=== PATIENT | female | born 1965 | race American Indian/Alaskan Native ===

== ENCOUNTER 2017-04-23 09:36 | Emergency (ER) | payer SELFPAY ==
--- NOTE | 2017-04-23 13:10 | Emergency Department Report ---
ED Back Pain/Injury HPI - General Chief Complaint: Back Pain/Injury Stated Complaint: BACK PAIN Time Seen by Provider: 04/23/17 12:44 Source: patient Limitations: No Limitations - History of Present Illness Initial Comments: 51-year-old female past medical history hypertension, chronic back pain presents with complaint of approximately 1.5 months of persistent lower back pain. Patient also states that for nearly one month she has had anterior frontal sinus and nasal congestion. Patient does state that she has had some rhinorrhea denies any cough denies any fevers or chills denies body aches. Denies abdominal pain chest pain or shortness of breath at rest. Patient denies any lower extremity paresthesias loss of bladder or bowel continence. Patient also states that she has had some increased urinary frequency over the last 3-4 days. Denies dysuria. Patient states she has been using some over-the -counter medicines with minimal relief of symptoms. Patient states she has a primary care doctor appointment next month. Awake alert and oriented 3 not in acute distress. Denies any falls denies any direct trauma to back. MD Complaint: back pain Onset/Timin -: month(s) Place: home Severity: mild Severity scale (0 -10): 5 Quality: aching Consistency: constant Improves With: none Worsens With: none Context: while lifting, turning/twisting, bending - Related Data Previous Rx's Medication Instructions Recorded Last Taken Type Ciprofloxacin HCl [Ciprofloxacin 500 mg PO Q12H #14 tab 04/11/15 Unknown Rx TAB] Ferrous Sulfate [Feosol 325 MG tab] 325 mg PO QDAY #30 tablet 04/11/15 Unknown Rx oxyCODONE /ACETAMINOPHEN [Percocet 1 tab PO Q6HR PRN #10 tablet 04/11/15 Unknown Rx 5/325] Clindamycin [Clindamycin CAP] 300 mg PO Q6H #28 capsule 04/23/17 Unknown Rx Fluticasone [Flonase] 1 spray NS QDAY PRN #1 bottle 04/23/17 Unknown Rx Loratadine [Claritin] 10 mg PO DAILY PRN #14 tablet 04/23/17 Unknown Rx Naproxen 500 mg PO BID PRN #20 tablet 04/23/17 Unknown Rx Nitrofurantoin Monohyd/M-Cryst 100 mg PO BID #14 capsule 04/23/17 Unknown Rx [Macrobid 100 mg Capsule] Allergies Allergy/AdvReac Type Severity Reaction Status Date / Time aspirin Allergy Itching Verified 04/23/17 10:31 codeine Allergy Itching Verified 04/23/17 10:31 Penicillins AdvReac Itching Verified 04/23/17 10:31 ED Review of Systems ROS: Stated complaint: BACK PAIN Other details as noted in HPI Constitutional: denies: chills, fever Eyes: denies: eye pain, eye discharge, vision change ENT: denies: ear pain, throat pain Respiratory: denies: cough, shortness of breath, wheezing Cardiovascular: denies: chest pain, palpitations Endocrine: no symptoms reported Gastrointestinal: denies: abdominal pain, nausea, diarrhea Genitourinary: denies: urgency, dysuria, discharge Musculoskeletal: back pain. denies: joint swelling, arthralgia Skin: denies: rash, lesions Neurological: denies: headache, weakness, paresthesias Psychiatric: denies: anxiety, depression Hematological/Lymphatic: denies: easy bleeding, easy bruising ED Past Medical Hx - Past Medical History Previous Medical History?: Yes Hx GERD: Yes Additional medical history: ectopic , fibroids - Surgical History Past Surgical History?: Yes Additional Surgical History: ectopic - Social History Smoking Status: Never Smoker Substance Use Type: Alcohol - Medications Home Medications: Home Medications Medication Instructions Recorded Confirmed Last Taken Type Ciprofloxacin HCl [Ciprofloxacin 500 mg PO Q12H #14 tab 04/11/15 Unknown Rx TAB] Ferrous Sulfate [Feosol 325 MG tab] 325 mg PO QDAY #30 tablet 04/11/15 Unknown Rx oxyCODONE /ACETAMINOPHEN [Percocet 1 tab PO Q6HR PRN #10 tablet 04/11/15 Unknown Rx 5/325] Clindamycin [Clindamycin CAP] 300 mg PO Q6H #28 capsule 04/23/17 Unknown Rx Fluticasone [Flonase] 1 spray NS QDAY PRN #1 bottle 04/23/17 Unknown Rx Loratadine [Claritin] 10 mg PO DAILY PRN #14 tablet 04/23/17 Unknown Rx Naproxen 500 mg PO BID PRN #20 tablet 04/23/17 Unknown Rx Nitrofurantoin Monohyd/M-Cryst 100 mg PO BID #14 capsule 04/23/17 Unknown Rx [Macrobid 100 mg Capsule] ED Physical Exam - General Limitations: No Limitations General appearance: alert, in no apparent distress - Head Head exam: Present: atraumatic, normocephalic - Eye Eye exam: Present: normal appearance, PERRL, EOMI - ENT ENT exam: Present: mucous membranes moist - Neck Neck exam: Present: normal inspection - Respiratory Respiratory exam: Present: normal lung sounds bilaterally. Absent: respiratory distress - Cardiovascular Cardiovascular Exam: Present: regular rate, normal rhythm. Absent: systolic murmur, diastolic murmur, rubs, gallop - GI/Abdominal GI/Abdominal exam: Present: soft, normal bowel sounds - Extremities Exam Extremities exam: Present: normal inspection - Back Exam Back exam: Present: normal inspection, full ROM (patient has no clinical CVA tenderness on percussion bilaterally) - Neurological Exam Neurological exam: Present: alert, oriented X3, CN II-XII intact, normal gait - Psychiatric Psychiatric exam: Present: normal affect, normal mood - Skin Skin exam: Present: warm, dry, intact, normal color. Absent: rash ED Course Vital Signs 04/23/17 10:25 Temperature 98.4 F Pulse Rate 70 Respiratory 18 Rate Blood Pressure 182/68 O2 Sat by Pulse 99 Oximetry ED Medical Decision Making - Medical Decision Making A/P: Back pain, sinusitis, asymptomatic hypertension 1-empiric treatment with clindamycin and Macrobid to cover for sinusitis and UTI. Patient has had symptoms for more than one month. Flonase nasal spray, Claritin, naproxen when necessary. Urine culture sent 2-patient stated that she had to leave to rock picker her grandchild. I covered patient empirically with medicines based on her symptoms 3-range of motion back fully intact 4-follow-up with primary care. Vital signs stable for discharge. Patient states she is able to tolerate NSAIDs except for aspirin Critical care attestation.: If time is entered above; I have spent that time in minutes in the direct care of this critically ill patient, excluding procedure time. ED Disposition Clinical Impression: Asymptomatic hypertension Urinary tract infection Qualifiers: Urinary tract infection type: acute cystitis Hematuria presence: without hematuria Qualified Code(s): N30.00 - Acute cystitis without hematuria Sinusitis Qualifiers: Sinusitis location: frontal Chronicity: subacute Qualified Code(s): J01.10 - Acute frontal sinusitis, unspecified Chronic back pain Qualifiers: Back pain location: low back pain Back pain laterality: midline Sciatica presence: without sciatica Qualified Code(s): M54.5 - Low back pain; G89.29 - Other chronic pain; G89.29 - Other chronic pain Disposition: TO HOME OR SELFCARE Is pt being admited?: No Does the pt Need Aspirin: No Condition: Stable Instructions: Back Pain (ED), Chronic Back Pain (ED), Sinusitis (ED), Hypertension (ED) Prescriptions: Clindamycin [Clindamycin CAP] 300 mg PO Q6H #28 capsule Fluticasone [Flonase] 1 spray NS QDAY PRN #1 bottle PRN Reason: Congestion Loratadine [Claritin] 10 mg PO DAILY PRN #14 tablet PRN Reason: Congestion Naproxen 500 mg PO BID PRN #20 tablet PRN Reason: Pain Nitrofurantoin Monohyd/M-Cryst [Macrobid 100 mg Capsule] 100 mg PO BID #14 capsule Referrals: [facility] [Outside] - 3-5 Days [facility] [Outside] - 3-5 Days [facility] [Provider Group] [email or web address]Provider Group] - 3-5 Days Forms: Work/School Release Form(ED) Time of Disposition: 13:51
[2017-04-23 13:25] LABS: Bacteria,Urine 1+ /HPF (Negative); Bilirubin,Urine NEG (Negative); Blood,Urine NEG (Negative); Color,Urine Yellow (Yellow); Mucus,Urine FEW /HPF; Nitrite,Urine NEG (Negative); Protein,Urine <15 mg/dL mg/dL (Negative); Urobilinogen,Urine < 2.0 mg/dL (<2.0)
[2017-04-23 13:26] LABS: HCG Qualitative,Urine Negative (Negative)
[2017-04-23] MEDS ORDERED: MOTRIN PO ONE (13:40)
[2017-04-23] MEDS ORDERED: CLEOCIN PO ONE (13:41)
[2017-04-23 14:08] VITALS: BP 145/98
== END 2017-04-23 14:06 | disposition home or self-care (01) ==
LOC: ED 09:36
DX: N39.0 Urinary tract infection, site not specified (principal); I10 Essential (primary) hypertension; J32.8 Other chronic sinusitis; M54.5 Low back pain; G89.29 Other chronic pain; K21.9 Gastro-esophageal reflux disease without esophagitis; Z88.0 Allergy status to penicillin; Z88.6 Allergy status to analgesic agent
CPT/HCPCS: 81001; 81025; 87086; 99283

== ENCOUNTER 2018-05-20 10:21 | Outpatient (CLI) | payer OTHER ==
--- NOTE | 2018-05-20 11:19 | XRay Report ---
Lumbar spine 3 views: History: Torn ligaments in both hands and both arms. Back pain. Findings: Normal height of vertebral bodies and intervertebral disc. Normal articular surfaces. Mild rotoscoliosis with convexity to left. Degenerative changes at the posterior elements of the lower lumbar spine. Impression: Degenerative changes of the posterior elements of the lower lumbar spine. Rotoscoliosis.
== END 2018-05-20 10:22 | disposition home or self-care (01) ==
LOC: XRAY 10:21
PROVIDERS: ATTEND Internal Medicine
DX: M47.816 Spondylosis without myelopathy or radiculopathy, lumbar region (principal); M41.86 Other forms of scoliosis, lumbar region; K21.9 Gastro-esophageal reflux disease without esophagitis
CPT/HCPCS: 72100